=== PATIENT | male | born 1985 | race Caucasian/White ===

== ENCOUNTER 2017-08-04 21:10 | Emergency (ER) | payer MEDICAID ==
[2017-08-04] MEDS ORDERED: PROPARACAINE HCL OPTH 15ML BTL OPTH ONE (21:11)
--- NOTE | 2017-08-04 21:34 | Emergency Department Record ---
History of Present Illness - General Chief complaint: Eye Problem Stated complaint: FORIEGN OBJECT LT EYE Time Seen by Provider: 08/04/17 21:33 Source: Patient Mode of Arrival: Ambulatory Limitations: No limitations - History of Present Illness Initial comments: The patient is here due to L eye pain for 2 days. He was grinding a piece of metal 2 days ago with no safety glasses on and felt something hit his L eye. He then did get a very small piece of metal out of his eye but since has had L eye pain. The patient denies any blurred vision or double vision but does feel like there is something in the L eye. He did flush his eye out at the time also. His Td is not UTD. chief complaint: Eye pain Onset/Timin -: Days(s) Onset Description: Sudden Location: Left eye Place: Work If Injury: Direct trauma Severity: Mild Severity scale (1-10): 4 - Related Data Visual acuity (L) = 20/: 30 Visual acuity (R) = 20/: 25 With correction: Yes (glasses) Hx Tetanus Toxoid Vaccination: No Patient Tetanus UTD (within 5 yrs): No Allergies Allergy/AdvReac Type Severity Reaction Status Date / Time NO KNOWN DRUG ALLERGY Allergy Uncoded 03/01/14 10:11 Travel Screening - Travel/Exposure Within Last 30 Days Have you traveled within the last 30 days?: No - Travel/Exposure Within Last Year Have you traveled outside the [place] in the last year?: No - Additonal Travel Details Have you been exposed to anyone with a communicable illness?: No - Travel Symptoms Symptom Screening: None Review of Systems Constitutional: Denies: Chills, Fever Eyes: Reports: Eye pain. Denies: Eye discharge, Photophobia Past Medical History - SOCIAL HISTORY Smoking Status: Current every day smoker Alcohol Use: None Drug Use: None - RESPIRATORY Hx Respiratory Disorders: No - CARDIOVASCULAR Hx Cardio Disorders: No - NEURO Hx Neuro Disorders: No - GI Hx GI Disorders: No - Hx Genitourinary Disorders: No - ENDOCRINE Hx Endocrine Disorders: No - MUSCULOSKELETAL Hx Musculoskeletal Disorders: No - PSYCH Hx Psych Problems: No - HEMATOLOGY/ONCOLOGY Hx Hematology/Oncology Disorders: No Family Medical History Any Significant Family History?: No Physical Exam - General General Appearance: Alert, Oriented x3, Cooperative, No acute distress - Head Head exam: Atraumatic, Normocephalic, Normal inspection - Eye Eye exam: Normal appearance, PERRL, Conjunctival injection (Mild L eye.), EOMI, Other (There is no FB on lid eversion. No FB is seen on slit lamp exam and only a mild abrasion at the 3:00 position is visualized on flourescein staining. There is no anterior chamber blood or haziness and a neg Marcia sign.). negative: Periorbital swelling, Periorbital tenderness Visual acuity (L) = 20/: 30 Visual acuity (R) = 20/: 25 With correction: Yes (glasses) - ENT ENT exam: Normal exam, Mucous membranes moist, Normal external ear exam, Normal orophraynx, TM's normal bilaterally Course Vital Signs 08/04/17 21:24 Temperature 98.3 F Pulse Rate 64 Respiratory 20 Rate Pulse Ox 97 - Reevaluation(s) Reevaluation #1: I did explain to the patient that we will place him on the Emycin opthalmic ointment for 5 days. He is to F/U with an Opthomologist if not 100% better in 36 hours. His mild pain was completely resolved with the alcaine and there was no signs of any penetrating eye injury. 08/04/17 21:50 08/04/17 21:54 Disposition Disposition: Discharge Clinical Impression: Corneal abrasion, left Qualifiers: Encounter type: initial encounter Qualified Code(s): S05.02XA - Injury of conjunctiva and corneal abrasion without foreign body, left eye, initial encounter Disposition: Home, Self-Care Condition: (1) Good Instructions: Corneal Abrasion (ED) Additional Instructions: Please use Tylenol or Motrin for pain and use the Emycin opthalmic ointment in the L eye 4 times a day for [address] Almeida if not 100% better in 36 hours. Return to the ER if worse. Referrals: ABRAM ALMEIDA [MEDICAL DOCTOR] - Forms: Patient Portal Access Time of Disposition: 21:52 Quality - Quality Measures Quality Measures: N/A - Blood Pressure Screening View Details: Yes Does Patient Have Any of the Following: No Blood Pressure Classification: Normal BP Reading Systolic Measurement: 98 Diastolic Measurement: 63 Screening for High Blood Pressure: < Normal BP, F/U Not Required > [[id number]]
[2017-08-04] MEDS ORDERED: ERYTHROMYCIN OPTH OINT 3.5GM OPTH ONE (21:46)
[2017-08-04] MEDS ORDERED: Diph,Pert(Acell),Tet Vac 0.5 ML SYR IM ONE (21:46)
== END 2017-08-04 22:04 | disposition home or self-care (01) ==
LOC: ER 21:10
DX: S05.02XA Injury of conjunctiva and corneal abrasion without foreign body, left eye, initial encounter (principal); W22.8XXA Striking against or struck by other objects, initial encounter; Y99.0 Civilian activity done for income or pay
CPT/HCPCS: 90715; 96372; 99283